=== PATIENT | female | born 1980 | race Caucasian/White ===

== ENCOUNTER 2016-04-21 20:16 | Emergency (ER) | payer OTHER ==
[~2016-04-21] VITALS: Ht 157.5 cm; Wt 80.3 kg
[~2016-04-21 20:16] MED LIST: HYDROCODONE/ACE1 TA1 PO; MOTRIN 600 MG600 MG PO; MULTIVITAMIN1 TAB PO; PERCOCET 325 MG1 TA2 PO; VALIUM5 M1 PO
[2016-04-21 20:33] VITALS: BP 128/86
[2016-04-21] MEDS ORDERED: LIDOCAINE HCL V15 ML PO (21:16)
[2016-04-21] MEDS ORDERED: AMOXICILLIN500 M3 PO (21:16)
--- NOTE | 2016-04-21 21:17 | ED THROAT/DENTAL COMPLAINT ---
History of Present Illness General Chief Complaint: General Adult Stated Complaint: "IM HAVING DIFFICULTY SWALLOWING" Source: patient Exam Limitations: no limitations Vital Signs & Intake/Output Vital Signs & Intake/Output Vital Signs Date Time Temp Pulse Resp B/P Pulse O2 O2 Flow FiO2 Ox Delivery Rate 04/21 2128 Room Air 04/21 2032 97.8 98 20 128/86 97 Room Air Allergies Coded Allergies: NO KNOWN ALLERGIES (08/27/13) Reconcile Medications Amoxicillin 500 MG TABLET 1 TAB PO TID strep Lidocaine HCl (Lidocaine HCl Viscous) 2 % SOLUTION 10 ML PO 4 TIMES/DAY sore throat magic outh wash ( lidocaine, benadryl maalox equal parts) Triage Note: RECEIVED 36 YO FEMALE C/O LEFT SIDE OF NECK SWOLLEN, PT REPORTS SORE THROAT AND DIFFICULTY SWALLOWING X ONE DAY. +HEADACHE AND LEFT SIDED EAR PAIN Triage Nurses Notes Reviewed? yes Onset: Abrupt Duration: day(s): (2), constant, continues in ED Timing: recent history Injury Environment: home No Modifying Factors: none : No Patient currently breastfeeds: No HPI: 36-year-old female comes into emergency room for further evaluation of sore throat has been going on for the past 2 days. Associated fever and neck pain. Denies any vomiting. Hurts to swallow. Nothing seems to make the symptoms better. Denies any sick contacts. (DAGO BANUELOS) Past History Travel History Traveled to [place] past 21 day No Medical History Any Pertinent Medical History? see below for history Neurological: migraine EENT: NONE Cardiovascular: NONE Respiratory: NONE Gastrointestinal: diverticulitis Hepatic: NONE Renal: NONE Musculoskeletal: NONE Psychiatric: NONE Endocrine: NONE Blood Disorders: NONE Cancer(s): NONE CUSTOM DRESSMAKER/Reproductive: endometriosis Surgical History Surgical History: non-contributory Psychosocial History What is your primary language Mal[place]ian Tobacco Use: Never used Family History Hx Contributory? No (DAGO BANUELOS) Review of Systems Review of Systems Constitutional: Reports: no symptoms. EENTM: Reports: see HPI. Respiratory: Reports: no symptoms. Cardiovascular: Reports: no symptoms. GI: Reports: no symptoms. Genitourinary: Reports: no symptoms. Musculoskeletal: Reports: no symptoms. Skin: Reports: no symptoms. Neurological/Psychological: Reports: no symptoms. Hematologic/Endocrine: Reports: no symptoms. Immunologic/Allergic: Reports: no symptoms. All Other Systems: Reviewed and Negative (DAGO BANUELOS) Physical Exam Physical Exam General Appearance: well developed/nourished, no apparent distress, alert, awake Head: atraumatic, normal appearance Eyes: Bilateral: normal appearance. Nose: normal inspection Mouth/Throat: PHARYNGEAL ERYTHEMA, EXUDATES, Neck: lymphadenopathy (R), lymphadenopathy (L) Cardiovascular/Respiratory: regular rate/rhythm, no respiratory distress Back: normal inspection Neurologic/Psych: awake, alert, oriented x 3, normal gait, normal mood/affect Skin: intact, normal color Core Measures ACS in differential dx? No Severe Sepsis Present: No Septic Shock Present: No (DAGO BANUELOS) Progress Differential Diagnosis: aspirated tooth, carious tooth, epiglottitis, Ludwigs angina, meningitis, odontogenic abscess, jj-tonsillar abscess, pharyngeal for. body, stomatitis/gingivitis, strep pharyngitis, tooth fracture Plan of Care: Orders Procedure Date/time Status THROAT CULTURE W/QUICK STREP 04/21 2034 Complete Comments: 04/21/2016 10:20:02 PM Patient is nontoxic-appearing. Patient is in no apparent distress. Resting comfortably in room. Follow-up with primary care doctor. Return if any other concerns worsening symptoms. (DAGO BANUELOS) Departure Departure Disposition: HOME OR SELF CARE Condition: Stable Clinical Impression Primary Impression: Strep pharyngitis Referrals: SHADIA SALVADOR MD (PCP/Family) Additional Instructions: Take Magic mouthwash and amoxicillin as prescribed. Follow-up with primary care doctor. Return to the emergency room if any concerns worsening symptoms. Please go over all results of today's visit with your primary care doctor. Contact your primary care doctor to let them know you were here in the emergency room. There may be nonspecific findings which may not be related to your visit today here in the emergency room but may require further evaluation and chronic monitoring by your primary care doctor. If you had a laceration today the chance of foreign body always remains. You should follow-up with your primary care doctor for recheck in 3-5 days for a wound check. If you had an x-ray done there is a chance that a fracture could have been missed on initial read and you should follow-up with your primary care doctor for repeat x-rays if symptoms persist. If your blood pressure was elevated here in the emergency room please have rechecked by her primary care doctor within the next 48 hours by your primary care doctor. If you were prescribed a narcotic here in the emergency room or any type of controlled substances you're not allowed to drive while taking this medication or operate any type of heavy machinery. Narcotics can make you feel lightheaded dizziness nausea and can cause constipation. You may need to seed cone picker a stool softener. Thank you for choosing [facility] emergency room. Please return to the emergency room immediately if you have any other concerns worsening of symptoms. Departure Forms: Customer Survey General Discharge Information Prescriptions: Current Visit Scripts Amoxicillin 1 TAB PO TID #30 TAB Lidocaine HCl (Lidocaine HCl Viscous) 10 ML PO 4 TIMES/DAY #100 ML magic outh wash ( lidocaine, benadryl maalox equal parts) (TANK GENAO,DAGO) PA/CLOTH LAMINATING SUPERVISOR Co-Sign Statement Statement: ED Attending supervision documentation- [] I saw and evaluated the patient. I have also reviewed all the pertinent lab results and diagnostic results. I agree with the findings and the plan of care as documented in the PA's/CLOTH LAMINATING SUPERVISOR's documentation. [X] I have reviewed the ED Record and agree with the PA's/CLOTH LAMINATING SUPERVISOR's documentation. [] Additions or exceptions (if any) to the PAs/CLOTH LAMINATING SUPERVISOR's note and plan are summarized below: [] (REVA SETHI,JANETTE)
== END 2016-04-21 21:30 ==
LOC: ERH 20:16
DX: J02.0 Streptococcal pharyngitis (principal)